=== PATIENT | male | born 2000 | race Two or more races ===

== ENCOUNTER 2024-07-27 23:29 | Emergency (ER) | payer SELFPAY ==
[2024-07-27 23:32] VITALS: BP 115/71
--- NOTE | 2024-07-28 00:13 | ED.GENMED ---
History of Present Illness
General
Chief Complaint: Crisis Evaluation
Source: patient and family
Time Seen by Provider: 07/28/24 00:04
History of Present Illness
History of Present Illness:
24-year-old male who presents emergency department because 'I do not want to be here no more'. He states he has been feeling this way 'for a while'. As per father, patient became very upset about 2 months ago when he broke up with his girlfriend.
He brought him to the crisis area, and states 'they did not do anything'. He was not started on meds, and does not see a therapist or have outpatient mental health services. Since that time, patient has been very anxious and dad has been giving
him medicine that he obtained from the [place] for anxiety which he thinks has been helping him minimally. 2 days ago, he states that he was threatening to jump out of window. Today, he saw something upsetting on social media regarding
his former girlfriend and started punching himself. Patient speaks very little when asked questions but does confirm that he feels suicidal at this time.
Past History
Past History
ED Past Medical History: None
ED Past Surgical History: None
Social History
Tobacco: Non-smoker
Alcohol: None
Drug: None
Personal: Single
Living: with family
Employment: Employed
Phy Exam
Physical Exam
Physical Exam:
GENERAL: Alert , in no apparent distress
EYE: pupils equal and round
NECK: Supple, no significant adenopathy.
ENT: o/p clr, mmm.. There is mild redness and bruising noted at the right lower jaw area without deformity, trismus or other abnormalities
CARDIAC: Regular rate and rhythm .
LUNGS: Clear breath sounds bilaterally, no acute respiratory distress, no wheezes/rales/rhonchi
ABDOMEN: Soft, without focal tenderness, no r/g
NEUROLOGICAL: Alert and oriented, grossly nonfocal
SKIN: Warm and dry, skin intact.
MUSCULOSKELETAL: No edema, well perfused.
PSYCH: Very flattened affect
Course
Orders/Labs/Results
Orders:
Orders
07/27/24 23:37
1:1 Observation - Suicide/ Violent Behavior As Directed
Crisis Consult Urgent
Reason for Consult: depression with suicidal ideation
07/27/24 23:50
Crisis Consult Urgent
Reason for Consult: depression, suicidal
Alcohol Urgent
Basic Metabolic Panel Urgent
Complete Blood Count/With Diff Urgent
07/27/24 23:55
Urine Drug Abuse Screen Urgent
Date Specimen was Collected: 07/27/24
Time Specimen was Collected: 23:50
07/28/24 00:16
Telemedicine Psychiatry Conslt Urgent
Service Line: Psychiatric
Nursing Station
Ordering Physician: Cynthia Cortes
Referring Physician
Cart Name: Connor
Psych Consult Reason: Depression/anxiety/PTSD
Psychiatry Consult Location: ED
Patient Needs to be Seen Emergently: Yes
Patient Admitted for NonPsychiatric Reasons: No
Patient in Restraints: No
Patient Requires a Senior Editor: Yes
Patient's Legal Status is Involuntary: No
Patient Requires a Guardian: No
Vital Signs
Initial and Last Documented VS:
Initial Vital Signs
Temp Pulse Resp BP Pulse Ox
97.5 F 61 15 115/71 97
07/27/24 23:32 07/27/24 23:32 07/27/24 23:32 07/27/24 23:32 07/27/24 23:32
Last Documented Vital Signs
Temp Pulse Resp BP Pulse Ox
97.5 F 60 16 124/67 100
07/27/24 23:32 07/28/24 01:23 07/28/24 01:23 07/28/24 01:23 07/28/24 01:23
*Critical Care Note
Total Time (30-74mins, 75-104mins- exclusive of procedures): Not Applicable
Update Note
Update Note:
Patient presents to the Emergency Department with depression, self-harm
Number and Complexity of Problems Addressed at the Encounter
� Chronic conditions affecting care:
� Acute Exacerbation and/or Progression of Chronic Illness:
� Differential Diagnosis includes: But not limited to major depressive disorder, bipolar disorder, etc. etc.
Amount and/or Complexity of Data to be Reviewed and Analyzed
� I performed an independent evaluation of and my interpretation is:
EKG:
CT:
Xrays:
Laboratory Studies:
Other:
� Review of other/old records reveals:
� Clinical information was obtained by an independent historian:
� Prescriptions/Medications Considered but not given:
� Further testing considered but not performed:
Risk of Complications and/or Morbidity or Mortality of Patient Management
� Social determinants of health affecting care:
� Discussion with other providers (PCP, Hospitalists, Consultants, etc):
� Escalation of care including admission/observation vs risk of discharge considered: Call placed to crisis asking them to see patient 12:15 AM
200 am CASE D/W crisis, and then RN/myself and crisis collectively spoke with family and pt....pt contracts for safety, denies active SI, feels safe to pursue outpt care and go home otnight. Mom and dad in agreement with this an dwill support his
efforts to get this care. I specifically asked/offered inpt care for pt (as a 201), and they decline at this time.
ED Attending Note
-
Portions of this chart may have been created with voice recognition software.� Occasional wrong word or��sound alike� substitutions may have occurred due to the inherent limitations of voice recognition software.
Discharge Plan
Departure
Patient Disposition: Home (Routine Discharge)
Date of Disposition: 07/28/24
Time of Disposition: 01:49
Patient with high blood pressure during this ER visit?: Yes
Condition: Good
Discharge Problem:
Depression
Instructions: Depression, Adult (DC), BLOOD PRESSURE
Referrals:
UNKNOWN - PT DOES,NOT KNOW [Family Provider] -
Activity Restrictions/Additional Instructions:
IT IS VERY IMPORTANT THAT YOU CONTINUE YOUR CARE WITH THE OUTPATIENT SERVICES THAT WE PROVIDED FOR YOU. IF YOU HAVE THOUGHTS OF WANTING TO HURT YOURSELF OR OTHERS, COME TO THE CLOSEST ED IMMEDIATELY!
Interventions
Interventions:
*Risk Screen - Suicide Last Done: 07/27/24 23:32
*General Assessment Last Done: 07/27/24 23:32
*Neglect/Abuse Screening Last Done: 07/28/24 01:05
ED-Psychological Assessment Last Done: 07/28/24 00:08
Discharge Date and Time
Print Language: SERBIAN
[2024-07-28 00:15] LABS: Amphetamines Negative (Negative); Barbiturates Negative (Negative); Benzodiazepines Negative (Negative); Buprenorphine Negative (Negative); Cocaine Negative (Negative); Marijuana Negative (Negative); Methadone Negative (Negative); Methamphetamines Negative (Negative); Opiates Negative (Negative); Phencyclidine Negative (Negative); Tricyclic Antidepressants Negative (Negative)
[2024-07-28 01:23] VITALS: BP 124/67
== END 2024-07-28 02:06 | disposition home or self-care (01) ==
LOC: EMR 23:29
PROVIDERS: Emergency Medicine; EMERGENCY PHYSICIAN Emergency Medicine
DX: R45.851 Suicidal ideations (principal); F32.A Depression, unspecified; R03.0 Elevated blood-pressure reading, without diagnosis of hypertension
CPT/HCPCS: 99284; 80306